=== PATIENT | female | born 2000 | race Caucasian/White ===

== ENCOUNTER → 2024-05-16 | Outpatient (CLI) | payer OTHER, SELFPAY ==
[2024-05-16 16:29] LABS: Collection Type, Urine Clean Catch; RBC,Urine 0 /hpf (0-3)
[2024-05-16 18:38] LABS: Bacteria,Urine Rare; Bilirubin,Urine Negative (Negative); Blood,Urine Negative (Negative); Clarity,Urine Turbid (Clear/Hazy); Color,Urine Lt-Yellow (Lt Yel-Yel); Glucose, Urine Negative (Negative); Ketones,Urine Negative (Negative); Leukocyte Esterase,Urine Positive (Negative); Nitrite,Urine Negative (Negative); PH,Urine 6.5 (5.0-7.0); Protein,Urine Negative (Neg - Trace); Specific Gravity,Urine 1.022 (1.001-1.035); Squamous Epithelial Cell,Urine 20 /hpf (0-5); Urobilinogen,Urine Negative mg/dL (0.0-1.0); WBC,Urine 19 /hpf (0-5)
== END | disposition home or self-care (01) ==
LOC: COPL 16:09 → SLDO 16:11
PROVIDERS: PCP Registered Nurse; Referring Provider Registered Nurse; Visit Provider Registered Nurse
DX: N39.0 Urinary tract infection, site not specified (principal)
CPT/HCPCS: 81001; 87077; 87086; 87186

== ENCOUNTER → 2024-06-01 | Outpatient (CLI) | payer OTHER, SELFPAY ==
[2024-06-01 14:51] LABS: Collection Type, Urine Clean Catch
[2024-06-01 16:24] LABS: Bacteria,Urine 1+; Bilirubin,Urine Negative (Negative); Blood,Urine 3+ (Negative); Color,Urine Brown (Lt Yel-Yel); Glucose, Urine Negative (Negative); Ketones,Urine Negative (Negative); Leukocyte Esterase,Urine Positive (Negative); Nitrite,Urine Negative (Negative); Protein,Urine 2+ (Neg - Trace); RBC,Urine 1143 /hpf (0-3); Squamous Epithelial Cell,Urine 21 /hpf (0-5); Urobilinogen,Urine Negative mg/dL (0.0-1.0); WBC,Urine 18 /hpf (0-5)
[2024-06-01 16:28] LABS: Clarity,Urine Turbid (Clear/Hazy)
== END | disposition home or self-care (01) ==
LOC: SLDO 14:21
PROVIDERS: PCP Registered Nurse; Referring Provider Registered Nurse; Visit Provider Registered Nurse
DX: N39.0 Urinary tract infection, site not specified (principal)
CPT/HCPCS: 81001; 87086

== ENCOUNTER → 2024-08-16 | Outpatient (CLI) | payer OTHER, SELFPAY ==
--- NOTE | 2024-08-16 15:24 | XR_ITS ---
Examination: Complete OB ultrasound, less than 14 weeks, transabdominal Date and time of exam: August 16, 2024 1529 hours INDICATIONS: Vaginal bleeding and pelvic cramping beginning 2 days ago Technique: Obstetrical ultrasound images less than 14 weeks performed via transabdominal imaging Findings: Uterus 6.6 cm, intrauterine gestational sac 0.5 cm corresponds to 5 weeks 2 days gestational age No pole, no cardiac activity Right ovary 4.1 cm arterial flow Left ovary 3.6 cm arterial flow IMPRESSION: Intrauterine gestational sac corresponding to 5 weeks 2 days gestational age No pole, no cardiac activity Recommend short-term follow-up pelvic sonography to document viability
[2024-08-16 16:36] LABS: HCG Titer if Positive Positive
[2024-08-16 17:02] LABS: Beta HCG,Quantitative 1345 mIU/mL (<5.0)
== END | disposition home or self-care (01) ==
LOC: CDIM 15:10 → COPL 15:42
PROVIDERS: PCP Family Medicine; Referring Provider Physician Assistant; Visit Provider Radiology Diagnostic Radiology
DX: O26.91 Pregnancy related conditions, unspecified, first trimester (principal); Z3A.01 Less than 8 weeks gestation of pregnancy
CPT/HCPCS: 36415; 76801; 84702; 84703

== ENCOUNTER → 2024-08-21 | Outpatient (CLI) | payer BC, OTHER, SELFPAY ==
--- NOTE | 2024-08-21 14:14 | XR_ITS ---
Examination: Complete OB ultrasound, less than 14 weeks, transabdominal Date and time of exam: August 21, 2024 1426 hours INDICATIONS: Vaginal bleeding beginning August 14, 2024, OB Y sonogram August 16, 2024 M.D. intrauterine gestational sac corresponding to 5 weeks 2 days gestational age Technique: Obstetrical ultrasound images less than 14 weeks performed via transabdominal imaging Findings: Uterus 7.7 cm Intrauterine gestational sac in the lower uterine segment, no pole, no cardiac activity Right ovary 3.5 cm arterial flow Left ovary 3.3 cm arterial flow IMPRESSION: Spontaneous in progress, suggest continued pelvic sonography follow-up
[2024-08-21 15:23] LABS: HCG Titer if Positive Positive
[2024-08-21 15:52] LABS: Beta HCG,Quantitative 1352 mIU/mL (<5.0)
== END | disposition home or self-care (01) ==
LOC: COPL 14:42 → CDIM 08-29 06:40
PROVIDERS: PCP Family Medicine; Referring Provider Registered Nurse; Visit Provider Registered Nurse
DX: O03.9 Complete or unspecified spontaneous abortion without complication (principal)
CPT/HCPCS: 36415; 76801; 84702; 84703

== ENCOUNTER → 2024-08-30 | Outpatient (CLI) | payer BC, OTHER, SELFPAY ==
--- NOTE | 2024-08-30 14:13 | XR_ITS ---
Examination: Complete OB ultrasound, less than 14 weeks, transabdominal Date and time of exam: August 30, 2024, 1508 hours INDICATIONS: Spontaneous in progress on OB Vega sonogram August 21, 2024, no pole, no cardiac activity Technique: Obstetrical ultrasound images less than 14 weeks performed via transabdominal imaging Findings: Uterus 7.6 cm Fundal endometrial stripe 1.4 cm Intrauterine gestational sac in the mid uterine body, 0.5 cm corresponding to 5 weeks 3 days gestational age, no pole, no cardiac activity Right ovary 2.7 cm arterial flow Left ovary 2.9 cm arterial flow IMPRESSION: Findings remain consistent with spontaneous in progress, suggest continued short-term follow-up pelvic sonography
[2024-08-30 16:49] LABS: HCG Titer if Positive Positive
[2024-08-30 17:01] LABS: Beta HCG,Quantitative 567 mIU/mL (<5.0)
== END | disposition home or self-care (01) ==
LOC: CDIM 13:59 → COPL 15:22
PROVIDERS: PCP Family Medicine; Referring Provider Registered Nurse; Visit Provider Radiology Diagnostic Radiology
DX: O03.9 Complete or unspecified spontaneous abortion without complication (principal)
CPT/HCPCS: 36415; 76801; 84702; 84703

== ENCOUNTER → 2025-01-03 | Outpatient (CLI) | payer BC, OTHER, SELFPAY ==
--- NOTE | 2025-01-03 11:16 | XR_ITS ---
Examination: Abdomen sonogram, complete Date and time of exam: January 03, 2025, 1122 hours INDICATIONS: Right upper abdominal pain and tenderness with nausea beginning 4 days ago. Technique: Multiple real-time grayscale transabdominal sonographic images of the abdomen have been obtained. Findings: Multiple gallstones Gallbladder wall 0.39 cm no edema Common bile duct 0.2 cm Pancreatic head 2.3 cm Aorta not enlarged. Liver 11.8 cm smooth contour Normal hepatopetal portal venous flow Patent IVC Right kidney 9.2 cm renal cortex 1.6 cm Left kidney 10.7 cm renal cortex 1.6 cm Spleen 10.2 cm IMPRESSION: Cholelithiasis, abnormal thickening of the gallbladder wall, clinical correlation advised, consider HIDA scan or MRCP follow-up
[2025-01-03 12:09] LABS: Basophils # (Auto) 0.1 Thou/mm3 (0.0-0.2); Basophils % (Auto) 1 % (0-2.5); Eosinophils # (Auto) 0.2 Thou/mm3 (0.0-0.5); Eosinophils % (Auto) 4 % (0-10); Hematocrit 37.3 % (36.0-46.0); Hemoglobin 12.1 g/dL (12.0-16.0); Immature Granulocytes Auto 0.01 Thou/mm3 (0.00-0.00); Lymphocytes # (Auto) 2.0 Thou/mm3 (1.0-4.8); Lymphocytes % (Auto) 31 % (10-50); Mean Corpuscular HGB Conc 32.4 g/dl (31.0-37.0); Mean Corpuscular Hemoglobin 27.9 pg (25.0-35.0); Mean Corpuscular Volume 86 fL (80-100); Monocytes # (Auto) 0.5 Thou/mm3 (0.0-0.8); Monocytes % (Auto) 8 % (0-12); Neutrophils # (Auto) 3.6 Thou/mm3 (1.8-7.7); Neutrophils % (Auto) 57 % (37-80); Nucleated Red Blood Cell # 0.00 Thou/mm3 (0.00-0.00); Nucleated Red Blood Cell % 0 /100 WBC (0); Platelet Count 336 Thou/mm3 (140-440); RDW Standard Deviation 37.2 fL (36.4-46.3); Red Blood Count 4.33 Miln/mm3 (4.00-5.20); White Blood Count 6.3 Thou/mm3 (3.6-11.0)
[2025-01-03 12:25] LABS: Alanine Aminotransferase 57 U/L (10-49); Albumin, Serum 4.4 gm/dL (3.5-5.0); Albumin/Globulin Ratio 1.7 (1.2-2.2); Alkaline Phosphatase 113 U/L (46-116); Amylase 52 U/L (30-118); Anion Gap 8 (7-16); Aspartate Amino Transferase 18 U/L (0-34); BUN/Creatinine Ratio 11 Ratio (12-20); Bilirubin,Total 0.9 mg/dL (0.3-1.2); Blood Urea Nitrogen 8 mg/dL (9-23); Calcium 9.3 mg/dL (8.3-10.6); Calcium (Corrected) 9.3 mg/dL (8.5-10.1); Carbon Dioxide 27.3 mMol/L (20.0-31.0); Chloride 107 mMol/L (98-107); Creatinine (Component) 0.7 mg/dL (0.6-1.3); Globulin 2.6 gm/dL (2.3-3.5); Glucose 87 mg/dL (74-106); Lipase 30 U/L (12-53); Osmolality,Calculated 280 (275-295); Potassium 4.8 mMol/L (3.4-5.1); Sodium 142 mMol/L (136-145); Total Protein 7.0 gm/dL (5.7-8.2); eGFR > 60 See Note
== END | disposition home or self-care (01) ==
LOC: CDIM 11:04 → COPL 11:34
PROVIDERS: PCP Nurse Practitioner Family; Referring Provider Nurse Practitioner Family; Visit Provider Nurse Practitioner Family
DX: K80.20 Calculus of gallbladder without cholecystitis without obstruction (principal); R10.811 Right upper quadrant abdominal tenderness
CPT/HCPCS: 36415; 76700; 80053; 82150; 83690; 85025

== ENCOUNTER 2025-01-22 08:53 | Day surgery (SDC) | payer OTHER, MEDICAID, SELFPAY ==
[2025-01-22] VITALS (12 sets, daily range): BP systolic 105–133; BP diastolic 70–88; PULSE 62–106; RESP 11–20; TEMP 36.4–36.8; O2SAT 98–100; BMI 26.6
--- NOTE | 2025-01-22 09:14 | EDNOTE_ITS ---
ED General RME/HPI General Chief complaint: General Adult/Misc Complain Stated complaint: CHECKING IN FOR [facility] W/ DR. GUZMAN Time Seen by Provider: 01/22/25 09:13 Source: patient Arrival date/time: 01/22/25 08:53 24-year-old female with no known medical history was sent to the emergency room to have a lab cholecystectomy with Dr. Guzman today Mode of arrival: ambulatory Limitations: no limitations Related Data Allergies Allergy/AdvReac Type Severity Reaction Status Date / Time azithromycin Allergy Unknown ELEVATES Verified 01/22/25 08:57 LIVER ENZYMES Review of Systems Review of Systems Systems Reviewed: All systems reviewed, normal except as documented Constitutional Constitutional: Reports system reviewed and no additional complaints, except as documented, Denies fatigue, Denies fever(s), Denies headache(s) and Denies weakness Eyes Eyes: Reports system reviewed and no additional complaints, except as documented, Denies blurry vision and Denies change in vision ENT Ears, Nose, Mouth, and Throat: Reports system reviewed and no additional complaints, except as documented, Denies otalgia, Denies headache(s), Denies nasal congestion, Denies throat swelling and Denies vertigo Cardiovascular Cardiovascular: Reports system reviewed and no additional complaints, except as documented, Denies chest pain, Denies dyspnea and Denies dyspnea on exertion Respiratory Respiratory: Reports system reviewed and no additional complaints, except as documented, Denies chest congestion, Denies cough, Denies dyspnea, Denies dyspnea on exertion and Denies wheezing Gastrointestinal Gastrointestinal: Reports system reviewed and no additional complaints, except as documented, Denies abdominal pain, Denies cramping, Denies nausea and Denies vomiting Genitourinary Genitourinary: Reports system reviewed and no additional complaints, except as documented Musculoskeletal Musculoskeletal: Reports system reviewed and no additional complaints, except as documented and Denies back pain Integumentary/Breasts Skin/Breast: Reports system reviewed and no additional complaints, except as documented and Denies wounds Neurologic Neurologic: Reports system reviewed and no additional complaints, except as documented, Denies confusion, Denies headache(s), Denies lack of coordination, Denies vertigo and Denies weakness Psychiatric Psychiatric: Reports system reviewed and no additional complaints, except as documented, Denies anxiety, Denies confusion, Denies depression, Denies paranoia, Denies suicidal ideation and Denies tactile hallucinations Endocrine Endocrine: Reports system reviewed and no additional complaints, except as documented and Denies fatigue Hematologic/Lymphatic Hematologic/Lymphatic: Reports system reviewed and no additional complaints, except as documented and Denies lymphadenopathy Allergic/Immunologic Allergic/Immunologic: Reports system reviewed and no additional complaints, except as documented, Denies throat swelling, Denies urticaria and Denies wheezing Past Medical History Social History SMOKING STATUS: Never smoker ED Exam General Limitations: Present no limitations General appearance: Present alert and in no apparent distress Head Head exam: Present atraumatic Eye Eye exam: Present normal appearance, PERRL and EOMI ENT ENT exam: Present normal exam, normal oropharynx and mucous membranes moist Neck Neck exam: Present normal inspection, full ROM and trachea midline Chest Chest inspection: Present normal inspection and symmetric chest wall rise Respiratory Respiratory exam: Present normal lung sounds bilaterally Cardiovascular Cardiovascular exam: Present regular rate, normal rhythm and normal heart sounds Abdominal Exam Abdominal exam: Present soft and normal bowel sounds Extremities Exam Extremities exam: Present normal inspection and full ROM Back Exam Back exam: Present normal inspection and full ROM Neurological Exam Neurological exam: Present alert, oriented X3 and CN II-XII intact Psychiatric Psychiatric exam: Present normal affect and normal mood Skin Skin exam: Present warm, dry, intact and normal color Course Quality Measures none Orders Category Date Time Status COVID-19 Screening Questionnaire NOW Care 01/22/25 09:44 Ordered Decision to Admit X1 Care 01/22/25 09:44 Ordered NPO NOW Care 01/22/25 09:15 Active Consult to General Surgery Stat Cons 01/22/25 09:44 Ordered Diet NPO (NOW) Diet 01/22/25 09:15 Active CBC Stat Lab 01/22/25 09:15 Ordered CMP [Comprehensive Metabolic Panel] Stat Lab 01/22/25 09:15 Ordered HCG Qualitative,Urine Stat Lab 01/22/25 09:44 Ordered Lipase Stat Lab 01/22/25 09:15 Ordered PT [Prothrombin Time with INR] Stat Lab 01/22/25 09:15 Ordered PTT [Partial Thromboplastin Time] Stat Lab 01/22/25 09:15 Ordered Vital Signs Vital signs: Vital Signs Temperature 98.1 F 01/22/25 09:11 Pulse Rate 78 01/22/25 09:11 Respiratory Rate 16 01/22/25 09:11 Blood Pressure 123/85 H 01/22/25 09:11 Pulse Oximetry (%) 99 01/22/25 09:11 Oxygen Delivery Method Room Air 01/22/25 09:11 Discharge Plan Plan Patient Disposition: Admit Acute Care w/in Hospital Discharge Disposition comment: Stable Problem List Clinical Impression: Cholelithiasis Patient/Caregiver Discharge Instructions Education Materials: Preventing Surgical Site Infections Print Language: Syriac Stand Alone Forms: Sandra Award Info., Patient Portal Info Letter MDM Narrative MDM hospital course (for use when minimal MDM required): 24-year-old female with no known medical history was sent to the emergency room to have a lab cholecystectomy with Dr. Guzman today Patient is hemodynamically stable and in no apparent distress Physical examination shows tenderness to the right upper quadrant Patient has an ultrasound that shows cholelithiasis and was told by the surgeon to come into the emergency room today. Dr Guzman the general surgeon on-call was consulted and will admit the patient for a laparoscopic cholecystectomy Clinical Information Provided by: patient Medical Records reviewed None Meds/Rx considered, not ordered None Labs/Rad/Tests considered, not ordered None Chronic Illness/Social Conditions which may negatively complicate care or outcome(s)-explain: None or not applicable EKG EKG not done Labs Labs: none Imaging Imaging interpretation: none Medication Administration(s) none Diagnosis Differential Diagnosis ED Complaint MDM: Cholelithiasis/cholecystitis
[2025-01-22 10:08] LABS: Basophils # (Auto) 0.0 Thou/mm3 (0.0-0.2); Basophils % (Auto) 1 % (0-2.5); Eosinophils # (Auto) 0.1 Thou/mm3 (0.0-0.5); Eosinophils % (Auto) 1 % (0-10); Hematocrit 39.6 % (36.0-46.0); Hemoglobin 12.7 g/dL (12.0-16.0); Immature Granulocytes Auto 0.01 Thou/mm3 (0.00-0.00); Lymphocytes # (Auto) 2.4 Thou/mm3 (1.0-4.8); Lymphocytes % (Auto) 35 % (10-50); Mean Corpuscular HGB Conc 32.1 g/dl (31.0-37.0); Mean Corpuscular Hemoglobin 28.2 pg (25.0-35.0); Mean Corpuscular Volume 88 fL (80-100); Monocytes # (Auto) 0.4 Thou/mm3 (0.0-0.8); Monocytes % (Auto) 6 % (0-12); Neutrophils # (Auto) 3.8 Thou/mm3 (1.8-7.7); Neutrophils % (Auto) 57 % (37-80); Nucleated Red Blood Cell # 0.00 Thou/mm3 (0.00-0.00); Nucleated Red Blood Cell % 0 /100 WBC (0); Platelet Count 326 Thou/mm3 (140-440); RDW Standard Deviation 39.7 fL (36.4-46.3); Red Blood Count 4.51 Miln/mm3 (4.00-5.20); White Blood Count 6.6 Thou/mm3 (3.6-11.0)
[2025-01-22 10:27] LABS: Alanine Aminotransferase 65 U/L (10-49); Albumin, Serum 4.7 gm/dL (3.5-5.0); Albumin/Globulin Ratio 2.0 (1.2-2.2); Alkaline Phosphatase 96 U/L (46-116); Anion Gap 9 (7-16); Aspartate Amino Transferase 39 U/L (0-34); BUN/Creatinine Ratio 14 Ratio (12-20); Bilirubin,Total 1.2 mg/dL (0.3-1.2); Blood Urea Nitrogen 10 mg/dL (9-23); Calcium 9.3 mg/dL (8.3-10.6); Calcium (Corrected) 9.3 mg/dL (8.5-10.1); Carbon Dioxide 26.1 mMol/L (20.0-31.0); Chloride 107 mMol/L (98-107); Creatinine (Component) 0.7 mg/dL (0.6-1.3); Estimated Creatinine Clearance 124.8 mL/min (>60); Globulin 2.3 gm/dL (2.3-3.5); Glucose 84 mg/dL (74-106); Lipase 28 U/L (12-53); Osmolality,Calculated 281 (275-295); Potassium 4.4 mMol/L (3.4-5.1); Sodium 142 mMol/L (136-145); Total Protein 7.0 gm/dL (5.7-8.2); eGFR > 60 See Note
[2025-01-22 10:28] LABS: INR 1.1 (0.9-1.3); Partial Thromboplastin Time 25.7 Seconds (22.0-36.0); Prothrombin Time 11.5 Seconds (9.0-12.2)
[2025-01-22 11:06] LABS: HCG Qualitative,Urine Negative
--- NOTE | 2025-01-22 12:29 | SUR.PHASEI ---
1229 Patient arrived to recovery resting comfortably in [facility], on oxygen 4L via nasal cannula, drowsy and talking to staff, breathing unlabored, vital signs stable, denies pain, dressing intact to abdomen; dermabond, no bleeding noted, report received from [place] and Dr. Richey
--- NOTE | 2025-01-22 12:36 | PD.SURHP ---
HPI Date of Admission 01/22/2025 Chief Complaint Chief Complaint: Right upper quadrant abdominal pain with nausea and vomiting HPI 24-year-old female presented to the emergency department with abdominal pain with nausea and vomiting. Her symptoms started 2 weeks ago with epigastric and right upper quadrant pain, she underwent an ultrasound that revealed multiple gallstones with gallbladder wall thickening. She has had intermittent abdominal pain for the past 2 weeks. Over the past 2 days her pain has become persistent and progressively worse. Her pain is in epigastric and right upper quadrant radiating to her back, she has not been able to eat or tolerate any food. She has had nausea and vomiting, but denies fever, chills, jaundice or discoloration in urine or stool. Review of Systems Constitutional Constitutional: Denies headache(s) and Denies weakness ENT Ears, Nose, Mouth, and Throat: Denies headache(s) and Denies vertigo Cardiovascular Cardiovascular: Denies chest pain Respiratory Respiratory: Denies cough Gastrointestinal Gastrointestinal: Reports abdominal pain, Reports nausea and Reports vomiting Genitourinary Genitourinary: Denies difficulty voiding Musculoskeletal Musculoskeletal: Reports back pain Neurologic Neurologic: Denies headache(s), Denies vertigo and Denies weakness Hematologic/Lymphatic Hematologic/Lymphatic: Denies easy bleeding and Denies easy bruising Past Medical History Surgical History OTHER SURGICAL HX: No surgeries in the past Social History SMOKING STATUS: Never smoker SUBSTANCE USE: does not use ALCOHOL: Never Meds Home Medications and Allergies Allergies Allergy/AdvReac Type Severity Reaction Status Date / Time azithromycin Allergy Unknown ELEVATES Verified 01/22/25 08:57 LIVER ENZYMES Exam Vital Signs Temp Pulse Resp BP Pulse Ox O2 Del Method 98.2 F 62 17 126/84 99 Room Air 01/22/25 10:30 01/22/25 10:30 01/22/25 10:30 01/22/25 10:30 01/22/25 10:30 01/22/25 10:30 Constitutional Constitutional: no acute distress Routine HEENT Exam Eye: Present PERRL (Anicteric sclera) Routine Respiratory Exam Respiratory: Present CTA bilaterally Routine Cardiovascular Exam Cardiovascular: Present RRR Routine Abdominal Exam Abdominal: Present soft, normoactive bowel sounds and tenderness (Epigastric and right upper quadrant tenderness to palpation with guarding, no rebound tenderness or peritonitis at this time); Absent distended Results Results: Laboratory Laboratory results: results reviewed Results: Imaging Imaging narrative: Ultrasound finding from 2 weeks ago reviewed, radiologist interpretation noted Assessment & Plan Problem List (1) Biliary calculus with cholecystitis: Qualifiers: Cholelithiasis location: gallbladder Cholecystitis acuity: chronic Biliary obstruction: without biliary obstruction Qualified Code(s): K80.10 - Calculus of gallbladder with chronic cholecystitis without obstruction Status: Acute Plan Patient has symptomatic cholelithiasis. She will be taken to the operating room for laparoscopic possible open cholecystectomy. Risks, benefits and alternatives discussed with the patient and her mother. Benefits and alternatives explained to them, all their questions answered, they agreed and consented to proceed with the operation. Quality Measures Quality Measures none
--- NOTE | 2025-01-22 12:40 | ESOP_ITS ---
Date of Procedure 01/22/25 Pre Op Diagnosis Symptomatic cholelithiasis Post Op Diagnosis Cholelithiasis with cholecystitis Hydrops of the gallbladder Procedure Laparoscopic cholecystectomy Findings Moderately distended gallbladder with gallstones and a stone at the neck of the gallbladder causing hydrops of the gallbladder Procedure Description Patient was brought into the operating room in supine position. After administration of general endotracheal anesthesia abdomen was prepped and draped in standard surgical manner. A Veress needle was inserted through the umbilicus and pneumoperitoneum was obtained up to 15 mmHg. The Veress needle was then removed, a 5 mm infraumbilical incision was made and the 5mm trocar was inserted. Laparoscopic camera was placed. Under direct visualization a laparoscopic camera a 10 mm trocar was placed in subxiphoid and two 5 mm trocars placed in right upper quadrant. The gallbladder was identified and was noted to be moderately distended with chronic cholecystitis and a stone at the neck of the gallbladder. The gallbladder was decompressed with an aspirator, the contents were clear fluid consistent with hydrops of the gallbladder. The gallbladder was retracted cephalad and laterally. Dissection started near the infundibulum of gallbladder where cystic duct and gallbladder junction clearly identified. The cystic duct was circumferentially dissected off the peritoneum and surrounding inflammatory tissue. The critical view of safety was clearly demonstrated. Cystic duct was then divided between 2 endoclips proximally and one distally. The cystic artery was similarly dissected and divided. The gallbladder was then from the liver bed using electrocautery. The gallbladder was then placed inside an Endo Catch and removed from the abdomen utilizing subxiphoid trocar site. The area was copiously and thoroughly washed and irrigated, all the fluid was suctioned and the suction fluid returned clear. Hemostasis achieved using electrocautery. Endoclips noted be in place and intact without any bleeding or any leakage. Hemostasis was adequate and satisfactory. The subxiphoid trocar sites fascial defect was closed with 0 Vicryl using Endo Closure device. Instruments and trocars removed, pneumoperitoneum was evacuated and the incisions closed with 4-0 Monocryl in subcuticular fashion. Instrument needle and sponge counts were all reported to be correct X2. Patient tolerated the procedure well, was extubated, breathing spontaneously and without difficulty and was transferred to postanesthesia care in stable condition. Anesthesia GETA and local Pathology / specimen Other (Gallbladder and contents) Estimated Blood Loss 10 Condition Stable Disposition PACU Surgeon Linnea Guzman MD Surgical Staff Operation Date: 01/22/25 11:45 Case Staff Anesthesiologist: Andrea Richey RNsenior sql database developer: Safia Junior
[2025-01-22] MEDS: fentaNYL CIT INJ 50 mCg/ML AMP 2ML IVP (13:07)
[2025-01-22] MEDS: KETOROLAC INJ 30 MG/ML VIAL IVP (13:10)
--- NOTE | 2025-01-22 13:56 | SUR.PHASEII ---
1316: pt awake, alert, able to follow commands, breathing unlabored, dressing to abdomen clean, dry, and intact, VS stable, report from Renata Escobedo RN 1318: pt tolerating ice chips without difficulty swallowing or n/v 1356: pt awake, alert, able to follow commands, breathing unlabored, dressing to abdomen clean, dry, and intact, VS stable, discharge instructions given with mom present-all questions answered, pt able to dress self and ambulate to wheelchair with steady gait, pt discharged with all belongings and copies of discharge paperwork.
--- NOTE | 2025-01-28 13:15 | PD.ANESPROG ---
Documentation for date of: 01/28/25 POST ANESTHESIA NOTE: Patient had GETA for lap cholecystectomy on 01/22/25. I just called her number for follow up but no answer. Andrea Richey MD Anesthesia Progress Note Progress Note Most recent Vital Signs: Last Vital Signs Temp 97.7 F 01/22/25 13:40 Pulse 89 01/22/25 13:40 Resp 17 01/22/25 13:40 BP 121/73 01/22/25 13:40 Pulse Ox 98 01/22/25 13:40 O2 Del Method Room Air 01/22/25 10:30 O2 Flow Rate 2 01/22/25 12:44
== END 2025-01-22 13:56 | disposition home or self-care (01) ==
LOC: SERX 10:11 → S2EX 10:33
PROVIDERS: Emergency Provider Nurse Practitioner Family; PCP Registered Nurse; Referring Provider Surgery; Visit Provider Surgery
PROC: 0FT44ZZ Resection of Gallbladder, Percutaneous Endoscopic Approach (ICD-10-PCS; CPT 47562; principal; 2025-01-22 11:30)
DX: K80.10 Calculus of gallbladder with chronic cholecystitis without obstruction (principal); K82.1 Hydrops of gallbladder
CPT/HCPCS: 47562; 36415; 80053; 81025; 83690; 85025; 85610; 85730; 99283; A4217; A4649; J0131; J0694; J1100; J1885; J2250; J2371; J2405; J2704; J3010; J3490